=== PATIENT | male | born 1955 | race American Indian/Alaskan Native ===

== ENCOUNTER 2021-09-21 23:06 | Emergency (ER) | payer SELFPAY ==
--- NOTE | 2021-09-21 23:40 | Emergency Department Report ---
HPI - General Chief Complaint: GI Bleed Time Seen by Provider: 09/21/21 23:26 - HPI HPI: Room 6 Patient 66-year-old male present with chief complaint hematemesis. Patient states last night he developed left upper quadrant abdominal pain and hematemesis vomiting bright red blood. Patient states the frequent vomiting kept him from being able to sleep last night. Patient states his last bowel movement occurred yesterday and was within normal limits. Patient states he has not noticed bright red blood per rectum or melena. Patient complains of hea dache, dizziness and nausea now. Patient was transported by EMS and they report no emesis during transport. The patient states since last night he has vomited between 8-9 times. ED Past Medical Hx - Past Medical History Hx Hypertension: Yes Hx of Cancer: Yes ("I think a doctor told me I have cancer") - Surgical History Additional Surgical History: Back surgery - Family History Family history: no significant - Social History Smoking Status: Current Every Day Smoker (1/3 pack/day) Substance Use Type: None (Denies illicit drug use) - Medications Home Medications: Home Medications Medication Instructions Recorded Confirmed Last Taken Type HYDROcodone/APAP 5-325 [[place] 1 - 2 each PO Q6HR PRN #10 tablet 09/22/21 Unknown Rx 5/325] Ondansetron [Zofran ODT TAB] 8 mg PO Q8HR #20 tab.rapdis 09/22/21 Unknown Rx Pantoprazole [Protonix] 40 mg PO BID #60 tablet 09/22/21 Unknown Rx ED Review of Systems ROS: Stated complaint: NAUSEA,VOMITING BRIGHT RED BLOOD Other details as noted in HPI Constitutional: no symptoms reported Eyes: denies: eye pain ENT: denies: throat pain Respiratory: no symptoms reported Cardiovascular: denies: syncope Endocrine: no symptoms reported Gastrointestinal: abdominal pain, nausea, vomiting, hematemesis. denies: melena, hematochezia Genitourinary: denies: dysuria Musculoskeletal: denies: back pain Neurological: headache Physical Exam - Physical Exam Vital Signs: Vital Signs 09/22/21 00:47 Temperature 97.5 F L Pulse Rate 74 Respiratory 14 Rate Blood Pressure 135/84 [Left] O2 Sat by Pulse 99 Oximetry Physical Exam: GENERAL: The patient is well-developed well-nourished male lying on stretcher not appearing to be in acute distress. [] HEENT: Normocephalic. Atraumatic. Extraocular motions are intact. Patient has moist mucous membranes. NECK: Supple. Trachea midline CHEST/LUNGS: Clear to auscultation. There is no respiratory distress noted. HEART/CARDIOVASCULAR: Regular. There is no tachycardia. There is no gallop rub or murmur. ABDOMEN: Abdomen is soft, with mild discomfort to palpation in the left upper quadrant. There is no rebound or guarding. Patient has normal bowel sounds. There is no abdominal distention. SKIN: There is no rash. There is no edema. There is no diaphoresis. NEURO: The patient is awake, alert, and oriented. The patient is cooperative. The patient has no focal neurologic deficits. The patient has normal speech. GCS 15 MUSCULOSKELETAL: There is no evidence of acute injury. RECTAL: Light brown stool. Guaiac negative ED Medical Decision Making - Lab Data Result diagrams: 09/21/21 23:48 09/21/21 23:48 Laboratory Tests 09/21/21 09/21/21 09/21/21 23:48 23:48 23:48 WBC 9.6 RBC 4.44 Hgb 12.6 Hct 38.9 MCV 88 MCH 29 MCHC 33 RDW 17.7 H Plt Count 333 Lymph % (Auto) 21.6 Brooks % (Auto) 9.2 H Eos % (Auto) 3.5 Baso % (Auto) 1.4 Lymph # (Auto) 2.1 Brooks # (Auto) 0.9 H Eos # (Auto) 0.3 Baso # (Auto) 0.1 Seg Neutrophils % 64.3 Seg Neutrophils # 6.2 PT 14.5 INR 1.02 APTT 33.7 Sodium 138 Potassium 4.0 Chloride 100.8 Carbon Dioxide 25 Anion Gap 16 BUN 13 Creatinine 0.9 Estimated GFR > 60 BUN/Creatinine Ratio 14 Glucose 93 Calcium 9.6 Total Bilirubin 0.30 AST 14 ALT 8 Alkaline Phosphatase 89 Total Protein 7.4 Albumin 4.4 Albumin/Globulin Ratio 1.5 Lipase 24 Blood Type Antibody Screen 09/21/21 23:50 WBC RBC Hgb Hct MCV MCH MCHC RDW Plt Count Lymph % (Auto) Brooks % (Auto) Eos % (Auto) Baso % (Auto) Lymph # (Auto) Brooks # (Auto) Eos # (Auto) Baso # (Auto) Seg Neutrophils % Seg Neutrophils # PT INR APTT Sodium Potassium Chloride Carbon Dioxide Anion Gap BUN Creatinine Estimated GFR BUN/Creatinine Ratio Glucose Calcium Total Bilirubin AST ALT Alkaline Phosphatase Total Protein Albumin Albumin/Globulin Ratio Lipase Blood Type O POSITIVE Antibody Screen Negative - Differential Diagnosis Gastritis, peptic ulcer disease, pancreatitis, Critical care attestation.: If time is entered above; I have spent that time in minutes in the direct care of this critically ill patient, excluding procedure time. ED Disposition Clinical Impression: Acute gastritis, Nausea & vomiting Disposition: HOME / SELF CARE / HOMELESS Is pt being admited?: No Does the pt Need Aspirin: No Condition: Stable Instructions: Nausea and Vomiting, Adult, Gastritis, Adult, [id number], Hematemesis Additional Instructions: Return to the emergency department should you develop worsening symptoms, inability to tolerate food or liquids, high fever or any other concerns Prescriptions: HYDROcodone/APAP 5-325 [[place] 5/325] 1 - 2 each PO Q6HR PRN #10 tablet PRN Reason: Pain Pantoprazole [Protonix] 40 mg PO BID #60 tablet Ondansetron [Zofran ODT TAB] 8 mg PO Q8HR #20 tab.rapdis Referrals: PRIMARY CARE, [Primary Care Provider] - 3-5 Days PAOLA GARY MD [Staff Physician] - 3-5 Days (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 Please follow-up with him for further evaluation) Forms: Accompanied Note Time of Disposition: 01:34
[2021-09-22 00:35] LABS: Alanine Aminotransferase 8 units/L (7-56); Albumin 4.4 g/dL (3.9-5); BUN/Creatinine Ratio 14; Blood Urea Nitrogen 13 mg/dL (9-20); Calcium 9.6 mg/dL (8.4-10.2); Hemolysis Index 10
[2021-09-22 00:50] LABS: Basophils # (Auto) 0.1 K/mm3 (0.0-0.1); Basophils % (Auto) 1.4 % (0.0-1.8); Eosinophils # (Auto) 0.3 K/mm3 (0.0-0.4); Eosinophils % (Auto) 3.5 % (0.0-4.3); Hematocrit 38.9 % (35.5-45.6); Hemoglobin 12.6 gm/dl (11.8-15.2); Lymphocytes # (Auto) 2.1 K/mm3 (1.2-5.4); Lymphocytes % (Auto) 21.6 % (13.4-35.0); Mean Corpuscular HGB Conc 33 % (32-34); Mean Corpuscular Volume 88 fl (84-94); Monocytes # (Auto) 0.9 K/mm3 (0.0-0.8); Monocytes % (Auto) 9.2 % (0.0-7.3); Platelet Count 333 K/mm3 (140-440); Red Blood Count 4.44 M/mm3 (3.65-5.03); Red Cell Distribution Width 17.7 % (13.2-15.2)
[2021-09-22 01:06] LABS: INR 1.02 (0.87-1.13); Partial Thromboplastin Time 33.7 Sec. (24.2-36.6)
[2021-09-22] MEDS ORDERED: fentaNYL 100 MCG/2 ML INJ IV ONE (02:00)
[2021-09-22] MEDS ORDERED: PANTOPRAZOLE 40 MG INJ IV ONE (02:00)
[2021-09-22] MEDS ORDERED: SODIUM CHLORIDE 0.9% 1000 ML 1,000 ML IV ONE (02:00)
[2021-09-22] MEDS ORDERED: ONDANSETRON 4 MG/2 ML INJ IV ONE (02:00)
[2021-09-22 03:05] VITALS: BP 119/81
== END 2021-09-22 05:28 | disposition home or self-care (01) ==
LOC: ED 23:06
DX: K29.00 Acute gastritis without bleeding (principal); R11.2 Nausea with vomiting, unspecified; I10 Essential (primary) hypertension; F17.200 Nicotine dependence, unspecified, uncomplicated
CPT/HCPCS: 36415; 80053; 82270; 83690; 85025; 85610; 85730; 86850; 86900; 86901; 96361; 96374; 96375; 99284; C9113; J2405; J3010; J7030; Q0162

== ENCOUNTER 2021-10-06 09:25 | Emergency (ER) | payer SELFPAY ==
[2021-10-06] MEDS ORDERED: SODIUM CHLORIDE 0.9% 1000 ML 1,000 ML IV ONE (09:30)
[2021-10-06] MEDS ORDERED: PANTOPRAZOLE 40 MG INJ IV ONE (09:31)
[2021-10-06] MEDS ORDERED: ONDANSETRON 4 MG/2 ML INJ IV ONE (09:50)
[2021-10-06 10:22] LABS: Basophils % (Auto) 0.7 % (0.0-1.8); Eosinophils # (Auto) 0.6 K/mm3 (0.0-0.4); Eosinophils % (Auto) 8.7 % (0.0-4.3); Hematocrit 36.1 % (35.5-45.6); Lymphocytes # (Auto) 2.2 K/mm3 (1.2-5.4); Lymphocytes % (Auto) 33.8 % (13.4-35.0); Mean Corpuscular HGB Conc 33 % (32-34); Mean Corpuscular Volume 88 fl (84-94); Monocytes # (Auto) 0.6 K/mm3 (0.0-0.8); Monocytes % (Auto) 9.5 % (0.0-7.3); Red Blood Count 4.12 M/mm3 (3.65-5.03); Red Cell Distribution Width 17.1 % (13.2-15.2)
[2021-10-06 10:24] LABS: Platelet Count 228 K/mm3 (140-440)
[2021-10-06 10:34] LABS: INR 0.88 (0.87-1.13)
--- NOTE | 2021-10-06 10:41 | XRay Report ---
CHEST 1 VIEW 10/06/2021 10:14 AM INDICATION / CLINICAL INFORMATION: GI Bleed. COMPARISON: None available. FINDINGS: SUPPORT DEVICES: None. HEART / MEDIASTINUM: No significant abnormality. LUNGS / PLEURA: No significant pulmonary abnormality. No significant pleural effusion. No pneumothora x. ADDITIONAL FINDINGS: No significant additional findings. IMPRESSION: 1. No acute abnormality of the chest. Signer Name: Simon Snell MD Signed: 10/06/2021 10:36 AM Workstation Name: [id number]
[2021-10-06 10:44] LABS: Alanine Aminotransferase 6 units/L (7-56); Albumin 4.1 g/dL (3.9-5); BUN/Creatinine Ratio 10; Blood Urea Nitrogen 9 mg/dL (9-20); Hemolysis Index 37
[2021-10-06] MEDS ORDERED: ACETAMINOPHEN 325 MG TAB PO ONE (11:40)
--- NOTE | 2021-10-06 12:01 | Emergency Department Report ---
ED GI Bleed HPI - General Chief complaint: GI Bleed Stated complaint: vomiting blood Time Seen by Provider: 10/06/21 09:50 Source: EMS Mode of arrival: Ambulatory Limitations: No Limitations - History of Present Illness Initial comments: vomiting blood since yesterday, pt states that he has a hx of ulcers. pt was seen here recently for the same , work up negative -: Gradual, days(s) Severity scale (0 -10): 8 Quality: dull Consistency: intermittent Improves with: none Context: history of GI bleed - Related Data Previous Rx's Medication Instructions Recorded Last Taken Type HYDROcodone/APAP 5-325 [[place] 1 - 2 each PO Q6HR PRN #10 tablet 09/22/21 Unknown Rx 5/325] Ondansetron [Zofran ODT TAB] 8 mg PO Q8HR #20 tab.rapdis 09/22/21 Unknown Rx Pantoprazole [Protonix] 40 mg PO BID #60 tablet 09/22/21 Unknown Rx Allergies Allergy/AdvReac Type Severity Reaction Status Date / Time No Known Allergies Allergy Verified 10/06/21 09:30 ED Review of Systems ROS: Stated complaint: vomiting blood Other details as noted in HPI Constitutional: denies: chills, fever Eyes: denies: eye pain, eye discharge, vision change ENT: denies: ear pain, throat pain Respiratory: denies: cough, shortness of breath, wheezing Cardiovascular: denies: chest pain, palpitations Endocrine: no symptoms reported Gastrointestinal: denies: abdominal pain, nausea, diarrhea Genitourinary: denies: urgency, dysuria Musculoskeletal: denies: back pain, joint swelling, arthralgia Skin: denies: rash, lesions Neurological: denies: headache, weakness, paresthesias Psychiatric: denies: anxiety, depression Hematological/Lymphatic: denies: easy bleeding, easy bruising ED Past Medical Hx - Past Medical History Hx Hypertension: Yes Hx CVA: No Hx Heart Attack/AMI: No Additional medical history: ulcers - Surgical History Additional Surgical History: Back surgery - Social History Smoking Status: Current Every Day Smoker Substance Use Type: None - Medications Home Medications: Home Medications Medication Instructions Recorded Confirmed Last Taken Type HYDROcodone/APAP 5-325 [[place] 1 - 2 each PO Q6HR PRN #10 tablet 09/22/21 Unknown Rx 5/325] Ondansetron [Zofran ODT TAB] 8 mg PO Q8HR #20 tab.rapdis 09/22/21 Unknown Rx Pantoprazole [Protonix] 40 mg PO BID #60 tablet 09/22/21 Unknown Rx ED Physical Exam - General Limitations: No Limitations General appearance: alert, in no apparent distress - Head Head exam: Present: atraumatic, normocephalic - Eye Eye exam: Present: normal appearance - ENT ENT exam: Present: mucous membranes moist - Neck Neck exam: Present: normal inspection - Respiratory Respiratory exam: Present: normal lung sounds bilaterally. Absent: respiratory distress - Cardiovascular Cardiovascular Exam: Present: regular rate, normal rhythm. Absent: systolic murmur, diastolic murmur, rubs, gallop - GI/Abdominal GI/Abdominal exam: Present: soft, normal bowel sounds - Rectal Rectal exam: Present: deferred, heme (-) stool - Extremities Exam Extremities exam: Present: normal inspection - Back Exam Back exam: Present: normal inspection - Neurological Exam Neurological exam: Present: alert, oriented X3 - Psychiatric Psychiatric exam: Present: normal affect, normal mood - Skin Skin exam: Present: warm, dry, intact, normal color. Absent: rash ED Course Vital Signs 10/06/21 10/06/21 10/06/21 09:29 09:43 09:45 Temperature 98.1 F Pulse Rate 76 71 62 Respiratory 16 24 12 Rate Blood Pressure 127/87 Blood Pressure 148/94 [Right] O2 Sat by Pulse 99 99 99 Oximetry 10/06/21 10/06/21 10/06/21 10:00 10:13 10:16 Temperature Pulse Rate 64 57 L Respiratory 11 L 12 16 Rate Blood Pressure 135/83 125/87 Blood Pressure [Right] O2 Sat by Pulse 97 98 98 Oximetry 10/06/21 10:30 Temperature Pulse Rate 55 L Respiratory 16 Rate Blood Pressure 125/87 Blood Pressure [Right] O2 Sat by Pulse 99 Oximetry ED Medical Decision Making - Lab Data Result diagrams: 10/06/21 09:58 10/06/21 09:58 - EKG Data -: EKG Interpreted by Mt EKG shows normal: sinus rhythm Rate: bradycardia - EKG Data Interpretation: normal EKG - Radiology Data Radiology results: report reviewed, image reviewed - Medical Decision Making H.H stable vss no distress, heme negative exam, no evidence of GI bleed will refer to GI Critical care attestation.: If time is entered above; I have spent that time in minutes in the direct care of this critically ill patient, excluding procedure time. ED Disposition Clinical Impression: Acute gastritis Disposition: 01 HOME / SELF CARE / HOMELESS Is pt being admited?: No Does the pt Need Aspirin: No Condition: Stable Instructions: Gastritis, Adult, [id number] Referrals: ALEXANDRU LAN MD [Primary Care Provider] - 3-5 Days TONY BANSAL MD [Staff Physician] - 3-5 Days
--- NOTE | 2021-10-06 12:06 | Electrocardiograph Report ---
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
[2021-10-06 12:30] VITALS: BP 132/93
== END 2021-10-06 12:33 | disposition home or self-care (01) ==
LOC: ED 09:25
DX: K29.00 Acute gastritis without bleeding (principal); F17.200 Nicotine dependence, unspecified, uncomplicated; I10 Essential (primary) hypertension
CPT/HCPCS: 36415; 71045; 80053; 82140; 85025; 85610; 86850; 86900; 86901; 93005; 96361; 96374; 96375; 99284; C9113; J2405; J7030; Q0162

== ENCOUNTER 2021-12-12 10:25 | Inpatient (IN) | payer MEDICAID, MEDICARE ==
[2021-12-12] MEDS ORDERED: MECLIZINE 25 MG TAB PO ONE (11:58)
[2021-12-12] MEDS ORDERED: BUTALB/ACETAMINOPHEN/CAFFEINE TAB PO ONE (11:58)
[2021-12-12] MEDS ORDERED: ONDANSETRON 4 MG/2 ML INJ IV ONE (11:58)
--- NOTE | 2021-12-12 12:03 | Emergency Department Report ---
HPI - General Chief Complaint: Dizziness Time Seen by Provider: 12/12/21 11:40 - HPI HPI: [facility] 5 The patient is a 65-year-old male present with a chief complaint of headache and dizziness. Patient states for past 2 weeks he has had constant dizziness and frontal headache. Patient states he has had frequent falls over the past 3 months and states he had a syncopal episode at a bus stop several weeks ago and went to [facility]. Patient states he receives medication through IV and felt better for a few days but for the last 2 weeks she has had this constant frontal headache and dizziness. Patient denies nausea or vomiting. Patient currently gives his headache a score of 8/10 and states that Tylenol and ibuprofen has not helped. Patient also complains of occasional shortness of breath ED Past Medical Hx - Past Medical History Previous Medical History?: Yes Hx Hypertension: Yes Additional medical history: ulcers - Surgical History Past Surgical History?: No Additional Surgical History: Back surgery - Family History Family history: no significant - Social History Smoking Status: Current Every Day Smoker (1/3 pack/day) Substance Use Type: None (Denies illicit drug use) - Medications Home Medications: Home Medications Medication Instructions Recorded Confirmed Last Taken Type HYDROcodone/APAP 5-325 [[place] 1 - 2 each PO Q6HR PRN #10 tablet 09/22/21 Unknown Rx 5/325] Ondansetron [Zofran ODT TAB] 8 mg PO Q8HR #20 tab.rapdis 09/22/21 Unknown Rx Pantoprazole [Protonix] 40 mg PO BID #60 tablet 09/22/21 Unknown Rx Famotidine [Pepcid] 20 mg PO BID #60 tablet 10/06/21 Unknown Rx Omeprazole 20 mg PO BID #30 10/06/21 Unknown Rx ED Review of Systems ROS: Stated complaint: DIZZY Other details as noted in HPI Constitutional: no symptoms reported Eyes: vision change ENT: denies: throat pain Respiratory: shortness of breath Cardiovascular: denies: chest pain Endocrine: no symptoms reported Gastrointestinal: denies: nausea, vomiting Genitourinary: denies: dysuria Musculoskeletal: denies: back pain Neurological: headache, vertigo Physical Exam - Physical Exam Vital Signs: Vital Signs 12/12/21 10:36 Temperature 98.6 F Pulse Rate 60 Respiratory 16 Rate Blood Pressure 143/97 [Left] O2 Sat by Pulse 99 Oximetry Physical Exam: GENERAL: The patient is well-developed well-nourished male lying on stretcher not appearing to be in acute distress. [] HEENT: Normocephalic. Atraumatic. Extraocular motions are intact. Patient has moist mucous membranes. No nystagmus noted NECK: Supple. Trachea midline CHEST/LUNGS: Clear to auscultation. There is no respiratory distress noted. HEART/CARDIOVASCULAR: Regular. There is no tachycardia. There is no gallop rub or murmur. ABDOMEN: Abdomen is soft, nontender. Patient has normal bowel sounds. There is no abdominal distention. SKIN: There is no rash. There is no edema. There is no diaphoresis. NEURO: The patient is awake, alert, and oriented. The patient is cooperative. The patient has no focal neurologic deficits. The patient has normal speech. Cranial nerves II through XII grossly intact. Patient is able to hold either upper extremity at 45 degree angle for 10-second count without drift. Patient is able to hold either lower extremity at 30 degree angle for 5-second count without drift. Normal sensation to light touch throughout. GCS 15. NIHSS=0 MUSCULOSKELETAL:There is no evidence of acute injury. ED Course Vital Signs 12/12/21 10:36 Temperature 98.6 F Pulse Rate 60 Respiratory 16 Rate Blood Pressure 143/97 [Left] O2 Sat by Pulse 99 Oximetry ED Medical Decision Making - Lab Data Result diagrams: 12/12/21 12:23 12/12/21 12:23 Laboratory Tests 12/12/21 12/12/21 12/12/21 12:23 12:23 12:23 WBC 6.4 RBC 4.30 Hgb 13.2 Hct 38.7 MCV 90 MCH 31 MCHC 34 RDW 15.8 H Plt Count 270 Lymph % (Auto) 20.4 [place] % (Auto) 10.3 H Eos % (Auto) 3.0 Baso % (Auto) 1.0 Lymph # (Auto) 1.3 [place] # (Auto) 0.7 Eos # (Auto) 0.2 Baso # (Auto) 0.1 Seg Neutrophils % 65.3 Seg Neutrophils # 4.2 PT 13.5 INR 0.93 APTT 32.9 D-Dimer 135.00 Sodium 134 L Potassium 4.5 Chloride 100.8 Carbon Dioxide 22 Anion Gap 16 BUN 4 L Creatinine 1.0 Estimated GFR > 60 BUN/Creatinine Ratio 4 Glucose 79 Calcium 9.4 Magnesium Total Bilirubin 0.40 AST 17 ALT 9 Alkaline Phosphatase 68 Total Creatine Kinase 201 H CK-MB (CK-2) 3.3 CK-MB (CK-2) Rel Index 1.6 Troponin T < 0.010 Total Protein 8.2 Albumin 4.6 Albumin/Globulin Ratio 1.3 TSH Free T4 12/12/21 12/12/21 12:23 12:23 WBC RBC Hgb Hct MCV MCH MCHC RDW Plt Count Lymph % (Auto) [place] % (Auto) Eos % (Auto) Baso % (Auto) Lymph # (Auto) [place] # (Auto) Eos # (Auto) Baso # (Auto) Seg Neutrophils % Seg Neutrophils # PT INR APTT D-Dimer Sodium Potassium Chloride Carbon Dioxide Anion Gap BUN Creatinine Estimated GFR BUN/Creatinine Ratio Glucose Calcium Magnesium 2.10 Total Bilirubin AST ALT Alkaline Phosphatase Total Creatine Kinase CK-MB (CK-2) CK-MB (CK-2) Rel Index Troponin T Total Protein Albumin Albumin/Globulin Ratio TSH 0.616 Free T4 1.22 - EKG Data -: EKG Interpreted by Me EKG shows normal: sinus rhythm Rate: normal - EKG Data When compared to previous EKG there are: previous EKG unavailable Interpretation: normal EKG - Radiology Data Radiology results: report reviewed (Chest x-ray, CT head), image reviewed (CT head, chest x-ray) interpreted by me: Chest x-ray-no definite focal infiltrates, no pneumothorax [address] [address] XRay Report Signed Patient: ASHLEY MCDOWELL MR#: [id number] 44 : 06/01/1956 Acct:[id number] Age/Sex: 65 / M ADM Date: 12/12/21 Loc: ED Attending Dr: Ordering Physician: SUSAN LYONS MD Date of Service: 12/12/21 Procedure(s): XR chest 1V ap Accession Number(s): [id number] cc: SUSAN LYONS MD Fluoro Time In Minutes: CHEST 1 VIEW 12/12/2021 12:40 PM INDICATION / CLINICAL INFORMATION: Shortness of breath. COMPARISON: 10/06/21 FINDINGS: SUPPORT DEVICES: None. HEART / MEDIASTINUM: No significant abnormality. LUNGS / PLEURA: No significant pulmonary or pleural abnormality. No pneumothorax. ADDITIONAL FINDINGS: No significant additional findings. IMPRESSION: 1. No acute findings. Signer Name: Adri Uriarte MD Signed: 12/12/2021 1:46 PM Workstation Name: [id number] Transcribed By: SHAMA Dictated By: Ashwin Uriarte MD Electronically Authenticated By: Ashwin Uriarte MD Signed Date/Time: 12/12/211345 DD/ 45 TD/TT: [facility] [address] [place] [address] Cat Scan Report Signed Patient: ASHLEY MCDOWELL MR#: [id number] 44 : 06/01/1956 Acct:[id number] Age/Sex: 65 / M ADM Date: 12/12/21 Loc: ED Attending Dr: Ordering Physician: SUSAN LYONS MD Date of Service: 12/12/21 Procedure(s): CT head/brain wo con Accession Number(s): [id number] cc: SUSAN LYONS MD NONENHANCED CT SCAN OF THE HEAD: INDICATION / CLINICAL INFORMATION: 65 years Male; Headache, dizziness. TECHNIQUE: Routine CT head without contrast. All CT scans at this location are performed using CT dose reduction for ALARA by means of automated exposure control. COMPARISON: None. FINDINGS: BRAIN / INTRACRANIAL CONTENTS: No acute hemorrhage, mass effect, midline shift, hydrocephalus, or acute, large territorial infarct. Right frontal craniotomy; right occipital lobe en cephalomalacia; periventricular low-attenuation areas in both cerebral hemispheres due to chronic small vessel disease Empty sella CRANIOCERVICAL JUNCTION: No significant abnormality. ORBITS: No significant abnormality of visualized orbits. SINUSES / MASTOIDS: Opacified right maxillary sinus and right anterior ethmoid air cells with thickened bony mclaughlin; rudimentary right frontal sinus is opacified ADDITIONAL FINDINGS: None. IMPRESSION: No acute focal parenchymal lesion in the brain Right occipital lobe encephalomalacia Opacified right maxillary sinus and right anterior ethmoid air cells with thickened bony mclaughlin suggesting chronic disease Signer Name: Tez Vincent MD Signed: 12/12/2021 3:22 PM Workstation Name: [id number] Transcribed By: MARCELL Dictated By: Tez Christy MD Electronically Authenticated By: Tez Christy MD Signed Date/Time: 12/12/21 152 DD/ TD/TT: - Differential Diagnosis Vertigo, subdural hematoma, symptomatic anemia, PE, dehydration, migraine Critical care attestation.: If time is entered above; I have spent that time in minutes in the direct care of this critically ill patient, excluding procedure time. ED Disposition Clinical Impression: Orthostatic hypotension Disposition: ADMITTED INPATIENT Is pt being admited?: Yes Does the pt Need Aspirin: Yes Condition: Fair Referrals: PRIMARY CARE, [Primary Care Provider] - 3-5 Days Time of Disposition: 16:05 (Care transferred to hospitalist (Dr. Olvera))
[2021-12-12 12:35] LABS: Basophils # (Auto) 0.1 K/mm3 (0.0-0.1); Eosinophils # (Auto) 0.2 K/mm3 (0.0-0.4); Hematocrit 38.7 % (35.5-45.6); Hemoglobin 13.2 gm/dl (11.8-15.2); Lymphocytes # (Auto) 1.3 K/mm3 (1.2-5.4); Lymphocytes % (Auto) 20.4 % (13.4-35.0); Mean Corpuscular HGB Conc 34 % (32-34); Mean Corpuscular Volume 90 fl (84-94); Monocytes # (Auto) 0.7 K/mm3 (0.0-0.8); Monocytes % (Auto) 10.3 % (0.0-7.3); Platelet Count 270 K/mm3 (140-440); Red Cell Distribution Width 15.8 % (13.2-15.2)
[2021-12-12 12:47] LABS: INR 0.93 (0.87-1.13)
[2021-12-12 12:48] LABS: Partial Thromboplastin Time 32.9 Sec. (24.2-36.6)
[2021-12-12 13:00] LABS: Creatine Kinase MB 3.3 ng/mL (0.0-4.0)
[2021-12-12 13:01] LABS: Alanine Aminotransferase 9 units/L (7-56); Albumin 4.6 g/dL (3.9-5); BUN/Creatinine Ratio 4; Blood Urea Nitrogen 4 mg/dL (9-20); Calcium 9.4 mg/dL (8.4-10.2); Hemolysis Index 9
[2021-12-12 13:07] LABS: Free T4 (Free Thyroxine) 1.22 ng/dL (0.76-1.46)
--- NOTE | 2021-12-12 13:51 | XRay Report ---
CHEST 1 VIEW 12/12/2021 12:40 PM INDICATION / CLINICAL INFORMATION: Shortness of breath. COMPARISON: 10/06/21 FINDINGS: SUPPORT DEVICES: None. HEART / MEDIASTINUM: No significant abnormality. LUNGS / PLEURA: No significant pulmonary or pleural abnormality. No pneumothorax. ADDITIONAL FINDINGS: No significant additional findings. IMPRESSION: 1. No acute findings. Signer Name: Adri Uriarte MD Signed: 12/12/2021 1:46 PM Workstation Name: [id number]
[2021-12-12] MEDS ORDERED: SODIUM CHLORIDE 0.9% 1000 ML 1,000 ML IV ONE ×2 (14:28)
--- NOTE | 2021-12-12 15:26 | Cat Scan Report ---
NONENHANCED CT SCAN OF THE HEAD: INDICATION / CLINICAL INFORMATION: 65 years Male; Headache, dizziness. TECHNIQUE: Routine CT head without contrast. All CT scans at this location are performed using CT dos e reduction for ALARA by means of automated exposure control. COMPARISON: None. FINDINGS: BRAIN / INTRACRANIAL CONTENTS: No acute hemorrhage, mass effect, midline shift, hydrocephalus, or acute, large territorial infarct. Right frontal craniotomy; right occipital lobe encephalomalacia; periventricular low-attenuation area s in both cerebral hemispheres due to chronic small vessel disease Empty sella CRANIOCERVICAL JUNCTION: No significant abnormality. ORBITS: No significant abnormality of visualized orbits. SINUSES / MASTOIDS: Opacified right maxillary sinus and right anterior ethmoid air cells with thicken ed bony mclaughlin; rudimentary right frontal sinus is opacified ADDITIONAL FINDINGS: None. IMPRESSION: No acute focal parenchymal lesion in the brain Right occipital lobe encephalomalacia Opacified right maxillary sinus and right anterior ethmoid air cells with thickened bony mclaughlin sugges ting chronic disease Signer Name: Tez Vincent MD Signed: 12/12/2021 3:22 PM Workstation Name: [id number]
[2021-12-12] MEDS ORDERED: ASPIRIN 325 MG TAB PO ONE (16:06)
[2021-12-12 16:19] LABS: Bacteria,Urine 1+ /HPF (Negative); Bilirubin,Urine NEG (Negative); Blood,Urine NEG (Negative); Color,Urine Straw (Yellow); Protein,Urine <15 mg/dL mg/dL (Negative); Urobilinogen,Urine < 2.0 mg/dL (<2.0)
--- NOTE | 2021-12-12 16:58 | History and Physical Report ---
History of Present Illness Chief complaint: I keep getting dizzy and I feel weak History of present illness: 65 YO Male with HTN, OA, PUD, Nicotine Dependence, GERD, LDD presents to ED for evaluation. Patient reports "I keep getting dizzy and I feel weak". Patient states that over the past 2 weeks he has experienced increased weakness resulting in multiple falls, decreased exercise tolerance, dyspnea on exertion, dyspnea at rest, dizzy episodes, as well as multiple migraine headaches. EMS was notified and upon arrival the patient was found to be in distress and subsequently transported to [facility] for further care and evaluation of the aforementioned symptoms. The patient was seen and evaluated in the emergency department. All lab and imaging studies reviewed. Patient found to be hypotensive with a blood pressure of 83/54 mmHg, with concomitant orthostatic hypotension with suspected cardiogenic syncope. Patient also found to have clinical symptoms consistent with CHF decompensation. Patient mated to [place] elemetry and initiated on CHF protocol due to increased risk of worsening symptoms and for medical stabilization. Patient denies fever, chills, chest pain, palpitation, productive cough, skin rash and recent contact, or known exposure to COVID-19. No prior admission for review. All medication listed at time of admission has been reconciled. Advanced care planning conducted in ED. Past History Past Medical History: arthritis, GERD, hypertension, other (See HPI) Past Surgical History: Other (Back surgery) Social history: single, smoking Family history: hypertension Medications and Allergies Allergies Allergy/AdvReac Type Severity Reaction Status Date / Time No Known Allergies Allergy Verified 12/12/21 10:39 Home Medications Medication Instructions Recorded Confirmed Last Taken Type HYDROcodone/APAP 5-325 [[place] 1 - 2 each PO Q6HR PRN #10 tablet 09/22/21 Unknown Rx 5/325] Ondansetron [Zofran ODT TAB] 8 mg PO Q8HR #20 tab.rapdis 09/22/21 Unknown Rx Pantoprazole [Protonix] 40 mg PO BID #60 tablet 09/22/21 Unknown Rx Famotidine [Pepcid] 20 mg PO BID #60 tablet 10/06/21 Unknown Rx Omeprazole 20 mg PO BID #30 10/06/21 Unknown Rx Review of Systems Constitutional: weakness, no weight loss, no weight gain, no fever, no chills Ears, nose, mouth and throat: no ear pain, no decreased hearing, no nose pain, no nasal discharge Cardiovascular: syncope, shortness of breath, dyspnea on exertion, decreased exercise tolerance, no chest pain Respiratory: no cough, no cough with sputum, no excessive sputum, no hemoptysis Gastrointestinal: no abdominal pain, no nausea, no vomiting, no diarrhea Genitourinary Male: no hematuria, no flank pain, no discharge, no urinary frequency, no urinary hesitancy Rectal: no pain, no incontinence, no bleeding Musculoskeletal: no neck stiffness, no neck pain, no shooting arm pain, no arm numbness/tingling, no shooting leg pain Integumentary: no rash, no pruritis, no sores, no wounds, no jaundice Neurological: no transient paralysis, no paralysis, no parathesias, no numbness, no tingling, no seizures Psychiatric: no anxiety, no memory loss, no insomnia, no change in appetite, no suicidal ideation, no disorientation Endocrine: no cold intolerance, no polyphagia, no excessive thirst, no polydipsia, no nocturia Hematologic/Lymphatic: no easy bruising, no easy bleeding, no lymphadenopathy Allergic/Immunologic: no urticaria, no allergic rhinitis, no wheezing, no anaphylaxis Exam - Constitutional Vitals: Temp Pulse Resp BP Pulse Ox 98.6 F 60 16 143/97 100 12/12/21 10:36 12/12/21 10:36 12/12/21 10:36 12/12/21 10:36 12/12/21 13:43 General appearance: Present: mild distress - EENT Eyes: Present: PERRL ENT: hearing intact, clear oral mucosa - Neck Neck: Present: supple, normal ROM - Respiratory Respiratory effort: normal Respiratory: bilateral: CTA - Cardiovascular Heart Sounds: Present: S1 & S2. Absent: rub, click - Extremities Extremities: pulses symmetrical, No edema Peripheral Pulses: within normal limits - Abdominal General gastrointestinal: Present: soft, non-tender, non-distended, normal bowel sounds Male genitourinary: Present: normal - Integumentary Integumentary: Present: clear, dry - Musculoskeletal Musculoskeletal: generalized weakness - Psychiatric Psychiatric: cooperative - Neurologic Neurologic: CNII-XII intact HEART Score - HEART Score Troponin: Troponin T < 0.010 ng/mL (0.00-0.029) 12/12/21 12:23 Results - Labs CBC & Chem 7: 12/12/21 12:23 12/12/21 12:23 Labs: Abnormal lab results 12/12/21 12/12/21 Range/Units 12:23 12:23 RDW 15.8 H (13.2-15.2) % [place] % (Auto) 10.3 H (0.0-7.3) % Sodium 134 L (137-145) mmol/L BUN 4 L (9-20) mg/dL Total Creatine Kinase 201 H (55-170) units/L Assessment and Plan - Patient Problems (1) CHF (congestive heart failure) Current Visit: Yes Status: Acute Qualifiers: Heart failure type: diastolic Heart failure chronicity: acute Qualified Code(s): I50.31 - Acute diastolic (congestive) heart failure Plan to address problem: Strict I's/O, monitor urine output every shift, daily weight, afterload reduction, blood pressure control, monitor fluid balance, echocardiogram ordered and pending at time of admission, thyroid panel, magnesium level, BNP. (2) Syncope, cardiogenic Current Visit: Yes Status: Acute Plan to address problem: Telemetry monitoring, echocardiogram ordered and pending at time of admission, supportive care. (3) Osteoarthritis Current Visit: Yes Status: Acute Plan to address problem: Pain control, supportive care. (4) Orthostatic hypotension Current Visit: Yes Status: Acute Plan to address problem: Gentle IV fluid resuscitation therapy, supportive care, fall precautions. (5) Nicotine dependence Current Visit: Yes Status: Acute Qualifiers: Nicotine product type: cigarettes Substance use status: in withdrawal Qualified Code(s): F17.213 - Nicotine dependence, cigarettes, with withdrawal Plan to address problem: Smoke cessation counseling, supportive care, behavior change counseling, +15 minutes. (6) GERD (gastroesophageal reflux disease) Current Visit: Yes Status: Acute Qualifiers: Esophagitis presence: without esophagitis Qualified Code(s): K21.9 - Gastro-esophageal reflux disease without esophagitis Plan to address problem: PPI therapy, supportive care. (7) DVT prophylaxis Current Visit: Yes Status: Acute Plan to address problem: SCD to bilateral lower extremities while in bed (8) Advance care planning Current Visit: Yes Status: Acute Plan to address problem: Disease education conducted, care plan discussed, diagnoses discussed, prognosis discussed, patient is full code. Patient acknowledges understanding and agreement with care plan, +30 minutes. (9) Preventative health care Current Visit: Yes Status: Acute Plan to address problem: Patient counseled regarding balanced diet, increase protein intake, dietary supplementation, smoking cessation, as well as outpatient follow-up with primary care physician for all age and risk factor appropriate screening test. +30 minutes.
[2021-12-12] MEDS ORDERED: HYDROmorphone 0.5 MG/0.5 ML INJ IV PRN (17:04)
[2021-12-12] MEDS ORDERED: ONDANSETRON 4 MG/2 ML INJ IV PRN (17:04)
[2021-12-12] MEDS ORDERED: oxyCODONE /ACETAMINOPHEN 5-325MG TAB PO PRN (17:04)
[2021-12-12] MEDS ORDERED: ALBUTEROL 2.5 MG/3 ML NEBU IH PRN (17:04)
[2021-12-12] MEDS ORDERED: ACETAMINOPHEN 325 MG TAB PO PRN (17:04)
[2021-12-12] MEDS ORDERED: SODIUM CHLORIDE 0.9% 1000 ML 1,000 ML IV SCH (17:15)
[2021-12-13 08:04] VITALS: BP 139/92
--- NOTE | 2021-12-13 12:05 | Progress Note ---
Assessment and Plan (1) CHF (congestive heart failure) Current Visit: Yes Status: Acute Qualifiers: Heart failure type: diastolic Heart failure chronicity: acute Qualified Code(s): I50.31 - Acute diastolic (congestive) heart failure Plan to address problem: Strict I's/O, monitor urine output every shift, daily weight, afterload reduction, blood pressure control, monitor fluid balance, echocardiogram ordered and pending at time of admission, thyroid panel, magnesium level, BNP. (2) Syncope, cardiogenic Current Visit: Yes Status: Acute Plan to address problem: Telemetry monitoring, echocardiogram ordered and pending at time of admission, supportive care. (3) Osteoarthritis Current Visit: Yes Status: Acute Plan to address problem: Pain control, supportive care. (4) Orthostatic hypotension Current Visit: Yes Status: Acute Plan to address problem: Gentle IV fluid resuscitation therapy, supportive care, fall precautions. (5) Nicotine dependence Current Visit: Yes Status: Acute Qualifiers: Nicotine product type: cigarettes Substance use status: in withdrawal Qualified Code(s): F17.213 - Nicotine dependence, cigarettes, with withdrawal Plan to address problem: Smoke cessation counseling, supportive care, behavior change counseling, +15 minutes. (6) GERD (gastroesophageal reflux disease) Current Visit: Yes Status: Acute Qualifiers: Esophagitis presence: without esophagitis Qualified Code(s): K21.9 - Gastro-esophageal reflux disease without esophagitis Plan to address problem: PPI therapy, supportive care. (7) DVT prophylaxis Current Visit: Yes Status: Acute Plan to address problem: SCD to bilateral lower extremities while in bed (8) Advance care planning Current Visit: Yes Status: Acute Plan to address problem: Disease education conducted, care plan discussed, diagnoses discussed, prognosis discussed, patient is full code. Patient acknowledges understanding and agreement with care plan, +30 minutes. (9) Preventative health care Current Visit: Yes Status: Acute Plan to address problem: Patient counseled regarding balanced diet, increase protein intake, dietary supplementation, smoking cessation, as well as outpatient follow-up with primary care physician for all age and risk factor appropriate screening test. +30 minutes. --pending 2d echo, consult neuro, ordered PT eval Subjective Date of service: 12/13/21 Objective - Constitutional Vitals: Vital Signs - 12hr 12/13/21 12/13/21 12/13/21 00:49 01:04 01:07 Temperature 98.5 F Pulse Rate 55 L 54 L Respiratory 18 18 Rate Blood Pressure 137/86 Blood Pressure 137/86 [Left] O2 Sat by Pulse 100 100 100 Oximetry 12/13/21 12/13/21 12/13/21 03:51 04:00 07:34 Temperature 98.3 F 98.3 F Pulse Rate 52 L 52 L Respiratory 18 17 Rate Blood Pressure 135/87 Blood Pressure 135/87 [Left] O2 Sat by Pulse 100 100 100 Oximetry 12/13/21 08:02 Temperature 98.6 F Pulse Rate Respiratory 16 Rate Blood Pressure 139/92 Blood Pressure [Left] O2 Sat by Pulse Oximetry - Labs CBC & Chem 7: 12/12/21 12:23 12/12/21 12:23 Labs: Abnormal lab results 12/12/21 12/12/21 Range/Units 12:23 12:23 RDW 15.8 H (13.2-15.2) % [place] % (Auto) 10.3 H (0.0-7.3) % Sodium 134 L (137-145) mmol/L BUN 4 L (9-20) mg/dL Total Creatine Kinase 201 H (55-170) units/L HEART Score - HEART Score Troponin: Troponin T < 0.010 ng/mL (0.00-0.029) 12/12/21 12:23
[2021-12-13 12:38] LABS: BUN/Creatinine Ratio 5; Blood Urea Nitrogen 5 mg/dL (9-20); Calcium 8.9 mg/dL (8.4-10.2); Hemolysis Index 3
--- NOTE | 2021-12-13 21:33 | Electrocardiograph Report ---
[facility] Test Date: 2021-12-12 Test Time: 14:53:29 Pat Name: ASHLEY MCDOWELL Department: Room: A460 1 Gender: M Chief Executive: MEREDITH : 1956-06-01 Requested By: SUSAN LYONS Order Number: [id number] Reading MD: Monse Land Measurements Intervals [place] Rate: 60 P: 76 ND: 167 QRS: 87 QRSD: 100 T: 66 QT: 429 QTc: 427 Interpretive Statements Sinus rhythm Compared to ECG 10/06/2021 10:02:52 No significant change Electronically Signed On 12-13-2021 21:33:16 EDT by Monse Land
== END 2021-12-13 14:24 | disposition left against medical advice (07) | DRG 312 ==
LOC: EDBD → ED 10:25 → 4A 17:04
PROVIDERS: ADMIT Internal Medicine; ATTEND Internal Medicine
DX: I95.1 Orthostatic hypotension (principal); I11.0 Hypertensive heart disease with heart failure; F17.213 Nicotine dependence, cigarettes, with withdrawal; F17.210 Nicotine dependence, cigarettes, uncomplicated; I50.31 Acute diastolic (congestive) heart failure; M19.90 Unspecified osteoarthritis, unspecified site; K21.9 Gastro-esophageal reflux disease without esophagitis; Z53.29 Procedure and treatment not carried out because of patient's decision for other reasons; Z82.49 Family history of ischemic heart disease and other diseases of the circulatory system; Z79.899 Other long term (current) drug therapy
CPT/HCPCS: 36415; 70450; 71045; 80048; 80053; 81001; 82550; 82553; 83735; 83880; 84439; 84443; 84484; 85025; 85379; 85610; 85730; 93005; 93306; 94640; G0378; C8929; J2405; J7030